=== PATIENT | male | born 1990 | race Caucasian/White ===

== ENCOUNTER 2021-06-27 14:36 | Emergency (ER) | payer SELFPAY ==
[~2021-06-27] VITALS: Ht 170.2 cm; Wt 92.1 kg
--- NOTE | 2021-06-27 14:59 | PHYS DOC ---
Adult General Chief Complaint Chief Complaint: CHEST PAIN [facility] HPI Patient is a 31-year-old male presenting for chest pain. Onset was yesterday after work without any known inciting event, trauma or exposure. Nothing known makes better, direct palpation of right lower border of rib cage makes worse. Pain is sharp and focal to right sided chest wall. He is asymptomatic at rest but reports certain twisting/turning movements and coughing worsen it. On arrival today he is asymptomatic but is worried about it prompting him to come in. States he got online and was reading potential diagnoses which concerned him. 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 See HPI for pertinent positives and negative responses, other lewis all other systems are negative, non-pertinent or non-contributory Allergies Allergies Allergies Coded Allergies Type Severity Reaction Last Updated Verified No Known Drug Allergies 06/27/21 No Physical Exam Physical Exam Constitutional: Well developed, well nourished, no acute distress, non-toxic appearance. HENT: Normocephalic, atraumatic, bilateral external ears normal, oropharynx moist, no oral exudates, nose normal. Eyes: PERRLA, EOMI, conjunctiva normal, no discharge. Neck: Normal range of motion, no tenderness, supple, no stridor. Cardiovascular: Heart rate regular, sinus rhythm, no murmurs rubs or gallops Lungs & Thorax: Bilateral breath sounds clear to auscultation Abdomen: Bowel sounds normal, soft, no tenderness, no masses, no pulsatile masses. Nonsurgical abdomen, no peritoneal signs Skin: Warm, dry, no erythema, no rash. Back: No tenderness, no CVA tenderness. Extremities: No tenderness, no cyanosis, no clubbing, ROM intact, no edema. Neurologic: Alert and oriented X 3, grossly normal motor & sensory function, no focal deficits noted. Psychologic: Affect normal, judgement normal, mood normal. Current Patient Data Vital Signs Vital Signs Date Time Temp Pulse Resp B/P (MAP) Pulse Ox O2 Delivery O2 Flow Rate FiO2 06/27/21 14:52 98.1 101 19 155/74 97 Room Air Vital Signs Date Time Temp Pulse Resp B/P (MAP) Pulse Ox O2 Delivery O2 Flow Rate FiO2 06/27/21 14:52 98.1 101 19 155/74 97 Room Air EKG EKG EKG ordered and interpreted by myself 1458 hrs. sinus rhythm at 91 bpm, unremarkable intervals, no axis deviation, no acute ischemic findings, no STEMI Radiology/Procedures Radiology/Procedures [] Heart Score C/O Chest Pain: Yes HEART Score for Chest Pain: HEART Score for Chest Pain Response (Comments) Value History Moderately Suspicious 1 ECG Normal 0 Age < 45 0 Risk Factors No Risk Factors 0 Total 1 Risk Factors: Risk Factors: DM, Current or recent (<one month) smoker, HTN, HLP, family history of CAD, obesity. Risk Scores: Risk Factors: DM, Current or recent (<one month) smoker, HTN, HLP, family history of CAD, obesity. Course & Med Decision Making Course & Med Decision Making ABCs unremarkable. I disclosed entirety of ER findings and discussed most likely diagnosis of reproducible chest wall pain. Other diagnoses were discussed with patient such as ACS and pulmonary embolism and right upper quadrant abdominal pathology but all deemed less likely causes of patient's presentation. Plan of care discussed at length with need for close outpatient follow-up to review today's ER visit stressed. Strict return precautions were also discussed at length with good understanding by patient. Patient voiced understanding and a greement with the plan. Patient knows to come back for repeat evaluation if concerning signs or symptoms present prior to outpatient follow-up. Hemodynamically stable, ambulatory and well-appearing at time of disposition. Dragon Disclaimer Dragon Disclaimer This electronic medical record was generated, in whole or in part, using a voice recognition dictation system. Departure Departure: Impression: Primary Impression: Right-sided chest wall pain Disposition: HOME / SELF CARE / HOMELESS Condition: STABLE Referrals: PCP,NO (PCP) Additional Instructions: You were seen for chest pain. Your workup did not show any acute abnormalities today, but does not indicate that you do not have underlying cardiovascular disease. You do need to follow up with your primary doctor and might eventually require a ash worker for further evaluation and treatment. As discussed you are most likely suffering from costochondritis or inflammation of the chest wall which should resolve with ibuprofen and heating pad use. You should return to the ED if you develop worsening chest pain, shortness of breath, fever, abnormal sweating, leg swelling, or any other new or concerning symptoms. MALIK HILL DO Jun 27, 2021 14:59
[2021-06-27 16:05] VITALS: BP 148/71
--- NOTE | 2021-06-27 16:36 | EKG ---
[address] [address] Test Date: 2021-06-27 Test Time: 14:50:39 Pat Name: MIKEY GALINDO Department: Room: Gender: M [employer] Principal: TAHIR : 1990 Requested By: MALIK HILL Order Number: [id number] Reading MD: Measurements Intervals [place] Rate: 91 P: 39 SD: 156 QRS: 52 QRSD: 92 T: 37 QT: 322 QTc: 398 Interpretive Statements SINUS RHYTHM NORMAL ECG RI6.02 No previous ECG available for comparison
== END 2021-06-27 16:06 | disposition home or self-care (01) ==
LOC: ER 14:36
DX: R07.89 Other chest pain (principal)
CPT/HCPCS: 93005; 99283